=== PATIENT | male | born 1955 | race Caucasian/White ===

== ENCOUNTER 2016-05-22 11:56 | Day surgery (SDC) | payer OTHER ==
--- NOTE | ~2016-05-22 | EGD ---
EGD REPORT [facility] [address] [id number] NAME: DILLON ORDAZ : 53 STATUS : [facility]#: [id number] AGE: 60 ADM/REG DATE : 05/22/16 MR#: [id number] REPORT SERV DATE: 05/22/16 DICTATED BY: KASSANDRA DONG DATE: 05/22/16 REPORT STATUS : Draft TRANSCRIBED BY: [facility] DATE: 05/22/16 Endoscopy Center Patient Name: Dillon Ordaz. Date of : 1955 Attending MD: KASSANDRA DONG MD Procedure Date No Time: 05/22/2016 Procedure: Upper GI endoscopy Indications: Cirrhosis rule out esophageal varices Medicines: See the Anesthesia note for documentation of the administered medications Complications: No immediate complications. Procedure: Pre-Anesthesia Assessment: - ASA Grade Assessment: III - A patient with severe systemic disease. After obtaining informed consent, the endoscope was passed under direct vision. Throughout the procedure, the patient's blood pressure, pulse, and oxygen saturations were monitored continuously. The GIF [id number] was introduced through the mouth, and advanced to the second part of duodenum. The upper GI endoscopy was accomplished without difficulty. The patient tolerated the procedure well. Findings: The examined duodenum was normal. Mild portal hypertensive gastropathy was found in the gastric fundus. Mild inflammation was found in the gastric antrum. A small hiatus hernia was present. Grade I varices were found in the lower third of the esophagus. Impression: - Normal examined duodenum. - Portal hypertensive gastropathy. - Gastritis. - Hiatus hernia. - Grade I esophageal varices. Recommendation: - Patient has a contact number available for emergencies. The signs and symptoms of potential delayed complications were discussed with the patient. Return to normal activities tomorrow. Written discharge instructions were provided to the patient. - Regular diet. - Continue present medications. - Repeat the upper endoscopy in 1 year for surveillance. - Return to my office in 3 months. EGD REPORT [address] [address] NAME: DILLON ORDAZ : [birth year] STATUS : [facility]#: [id number] AGE: 60 ADM/REG DATE : 05/22/16 MR#: [id number] REPORT SERV DATE: 05/22/16 DICTATED BY: KASSANDRA DONG DATE: 05/22/16 REPORT STATUS : Draft TRANSCRIBED BY: [employer] DATE: 05/22/16 Procedure Code(s): --- Professional --- 13574, Esophagogastroduodenoscopy, flexible, transoral; diagnostic, including collection of specimen(s) by brushing or washing, when performed (separate procedure) Diagnosis Code(s): --- Professional --- K76.6, Portal hypertension K31.89, Other diseases of stomach and duodenum K29.70, Gastritis, unspecified, without bleeding K44.9, Diaphragmatic hernia without obstruction or gangrene I85.10, Secondary esophageal varices without bleeding K74.60, Unspecified cirrhosis of liver CPT copyright 2013 [employer]. All rights reserved. The codes documented in this report are preliminary and upon rn pain management review may be revised to meet current compliance requirements. Kassandra Dong MD KASSANDRA DONG MD 05/22/2016 1:36 PM This report has been signed electronically. Number of Addenda: 0 Note Initiated On: 05/22/2016 1:22 PM Scope Withdrawal Time 0 hours 0 minutes 0 seconds [id number] [id number]
[~2016-05-22 11:56] MED LIST: ACET500CAP PO; AMB5 PO; BENEFIBER; CANASA1SUP PR; CARASPUDL PO; CARASPUDL PR; CLARIT10 PO; EFFEXXR37 PO; FLOMAX4 PO; HYT2 PO; IRON325 MG PO; MEGACEUDL PO; METPAKSF PO; MIRALAXPKT PO; MOBIC7.5 PO; NEUR300 PO; NEUR600 PO; NICODERM C14 MG/24 H TOP; NICODERM C21 MG/241 TOP; NICOTINE 14 MG; NORV10 PO; PREPARATIO2 PR; PREPARATIO2 TOP; PREPARATION H1 SUPP PR; PRILO PO; PRIN10 PO; PRINZIDE1 TAB PO; REM15 PO; TRENTAL400 PO; ZYRTEC ALLGY10 MG PO
[2016-08-15] MEDS ORDERED: HYT2 PO (12:35)
[2016-08-15] MEDS ORDERED: MIRALAX POWDER1 PKT PO (12:38)
[2016-10-03] MEDS ORDERED: AMB5 PO (22:39)
[2016-10-03] MEDS ORDERED: NORV10 PO (22:39)
[2016-10-03] MEDS ORDERED: HYT2 PO (22:39)
[2016-10-03] MEDS ORDERED: BENEFIBER OTC PO (22:40)
[2016-10-03] MEDS ORDERED: MIRALAX POWDER1 PKT PO (22:40)
[2016-10-03] MEDS ORDERED: ZYRTEC ALLGY10 MG PO (22:41)
[2016-10-11] MEDS ORDERED: CLEAR EYE1 (23:23)
[2016-10-13] MEDS ORDERED: NORCO1 TA2 PO (10:58)
== END 2016-05-22 23:59 | disposition home or self-care (01) ==
LOC: DMU 11:56
PROVIDERS: Internal Medicine Gastroenterology
PROC: 0DJ08ZZ Inspection of Upper Intestinal Tract, Via Natural or Artificial Opening Endoscopic (ICD-10-PCS; principal; 2016-05-22 13:30)
DX: K29.70 Gastritis, unspecified, without bleeding (principal); I85.10 Secondary esophageal varices without bleeding; K76.6 Portal hypertension; K31.89 Other diseases of stomach and duodenum; K44.9 Diaphragmatic hernia without obstruction or gangrene; K74.60 Unspecified cirrhosis of liver; I10 Essential (primary) hypertension; M19.90 Unspecified osteoarthritis, unspecified site; F43.10 Post-traumatic stress disorder, unspecified; F31.9 Bipolar disorder, unspecified; Z85.46 Personal history of malignant neoplasm of prostate; Z92.3 Personal history of irradiation; B19.20 Unspecified viral hepatitis C without hepatic coma; K62.7 Radiation proctitis; K21.9 Gastro-esophageal reflux disease without esophagitis; R01.1 Cardiac murmur, unspecified; F17.210 Nicotine dependence, cigarettes, uncomplicated

== ENCOUNTER 2016-10-17 12:51 | Day surgery (SDC) | payer OTHER ==
[~2016-10-17] VITALS: Ht 177.8 cm; Wt 95.2 kg
--- NOTE | ~2016-10-17 | OP ---
Record Of Operation [facility] [address] [place]. [address] NAME: DILLON ORDAZ : [birth year] STATUS : [facility]#: [id number] AGE: 61 ADM/REG DATE : 10/17/16 MR#: [id number] REPORT SERV DATE: 10/17/16 DICTATED BY: SANTOS MOSS III DATE: 10/17/16 REPORT STATUS : Draft TRANSCRIBED BY: MODL DATE: 10/17/16 DATE OF PROCEDURE: 10/17/2016 PREOPERATIVE DIAGNOSIS: Radiation cystitis with hematuria. POSTOPERATIVE DIAGNOSES: 1. Radiation cystitis with hematuria. 2. Clot in bladder. ANESTHESIA: General. PROCEDURE: Cystoscopy, clot evacuation, and fulguration. INDICATION: Mr. Ordaz is a 61-year-old white male who has a history of prostate cancer. He has had radiation therapy. He has radiation cystitis. He has had gross hematuria with some clots. Consent is obtained for the above procedure. DESCRIPTION OF PROCEDURE: After consent was obtained, the patient was identified, he was taken to the OR and put to sleep. He was positioned in the low lithotomy position and prepped and draped in the usual fashion. The 22-German cystoscope was made ready and advanced along the course of urethra and into the bladder. The prostatic urethra appeared friable. There were some areas of bleeding. There was clot in the bladder, this was evacuated with an Ellik evacuator. The Bugbee electrode was then set with the coag on 30 and small bleeding points and areas of dilated vessels were cauterized and apparent bleeding was controlled. The bladder was left full and the scope was removed. A 22-German Hicks catheter was inserted and the balloon inflated to 30 mL. The efflux was clear. The patient was awakened and taken to recovery in stable condition. PH/MODL Santos Moss III, M.D. / [id number] CC: Sabino Kasper III, M.D.
[~2016-10-17 12:51] MED LIST changes: +BENEFIBER OTC PO; +CLEAR EYE1; +MIRALAX POWDER1 PKT PO; +NORCO1 TA2 PO
== END 2016-10-17 18:47 | disposition home or self-care (01) ==
LOC: SDC 12:51
PROVIDERS: Urology
PROC: 0T5B8ZZ Destruction of Bladder, Via Natural or Artificial Opening Endoscopic (ICD-10-PCS; 2016-10-17)
PROC: 0TCB8ZZ Extirpation of Matter from Bladder, Via Natural or Artificial Opening Endoscopic (ICD-10-PCS; principal; 2016-10-17 15:00)
DX: N30.41 Irradiation cystitis with hematuria (principal); N32.89 Other specified disorders of bladder; I10 Essential (primary) hypertension; M19.90 Unspecified osteoarthritis, unspecified site; K21.9 Gastro-esophageal reflux disease without esophagitis; F43.10 Post-traumatic stress disorder, unspecified; F31.9 Bipolar disorder, unspecified; D64.9 Anemia, unspecified; F17.210 Nicotine dependence, cigarettes, uncomplicated; Z85.46 Personal history of malignant neoplasm of prostate; Z86.19 Personal history of other infectious and parasitic diseases; Z79.899 Other long term (current) drug therapy; Z98.890 Other specified postprocedural states
CPT/HCPCS: 93005; A9270-GY; J2250; J2270; J2405; J3010